=== PATIENT | female | born 1945 | race American Indian/Alaskan Native ===

== ENCOUNTER 2021-05-21 18:22 | Observation (INO) | payer MEDICARE ==
[2021-05-24 05:44] VITALS: BP 136/62
== END 2021-05-24 18:57 | disposition home health service (06) ==
LOC: ED 18:22 → 3A 05-22 01:11
PROVIDERS: ADMIT Hospitalist; ATTEND Internal Medicine
DX: U07.1 COVID-19 (principal); J96.01 Acute respiratory failure with hypoxia; J12.82 Pneumonia due to coronavirus disease 2019; I10 Essential (primary) hypertension; K21.9 Gastro-esophageal reflux disease without esophagitis; R50.9 Fever, unspecified; R55 Syncope and collapse; Z79.82 Long term (current) use of aspirin; Z79.899 Other long term (current) drug therapy
CPT/HCPCS: 36415; 70450; 71046; 71275; 80053; 82728; 82947; 83615; 84145; 84484; 85025; 85027; 85379; 86140; 93005; 96361; 96365; 96366; 96367; 96372; 96375; 96376; 99291; G0378; J0456; J0696; J1100; J1644; J2405; J7030; Q9967; U0003